=== PATIENT | female | born 1935 | race Caucasian/White ===

== ENCOUNTER 2018-10-13 14:14 | Emergency (ER) | payer MEDICARE ==
[~2018-10-13 14:14] MED LIST: Iopamidol 370 76% 100 ML VIAL ONE
[2018-10-13 15:02] LABS: #Basophils 0.2 thou/uL (0.0-0.2); #Eosinphils 0.1 thou/uL (0.0-0.7); #Lymphocytes 2.4 thou/uL (1.20-3.40); #Monocytes 1.2 thou/uL (0.11-0.59); #Neutrophils 12.4 thou/uL (1.40-6.50); %Basophils 1.4 % (0.0-1.0); %Eosinophils 0.6 % (0.0-10.0); %Lymphocytes 14.7 % (21.0-51.0); %Monocytes 7.4 % (0.0-10.0); %Neutrophils 75.9 % (42.0-75.0); Hemoglobin 14.1 g/dL (12.0-16.0); Mean Corpuscular HGB CONC 33.1 g/dL (32.0-36.0); Mean Corpuscular Hemoglobin 28.7 pg (27.0-31.0); Mean Corpuscular Volume 86.7 fL (78.0-98.0); Mean Platelet Volume 9.5 fL (7.4-10.4); Platelet Count 191 thou/uL (130-400); Red Blood Cell (RBC) Count 4.91 mill/uL (4.20-5.40); White Blood Cell (WBC) Count 16.3 thou/uL (4.8-10.8)
[2018-10-13 15:06] LABS: ALT (SGPT) 7 U/L (8-55); AST (SGOT) 12 U/L (5-34); Albumin 3.8 g/dL (3.4-4.8); Alkaline Phosphatase 61 U/L (40-150); Anion Gap 17 mmol/L (10-20); BUN (Urea Nitrogen) 13 mg/dL (9.8-20.1); Bilirubin, Total 0.8 mg/dL (0.2-1.2); Calc. Creatinine Clearance 0 mL/min (70-130); Calcium 9.2 mg/dL (7.8-10.44); Carbon Dioxide 23 mmol/L (23-31); Chloride 103 mmol/L (98-107); Estimated GFR-MDRD 81; Globulin 2.9 g/dL (2.4-3.5); Glucose 90 mg/dL (83-110); Potassium 4.1 mmol/L (3.5-5.1); Protein, Total 6.7 g/dL (6.0-8.3); Sodium 139 mmol/L (136-145)
--- NOTE | 2018-10-13 15:33 | RAD ---
FRONTAL AND LATERAL IMAGING OF THE CHEST 10/13/18 COMPARISON: 06/24/10 HISTORY: Cough and tachycardia. FINDINGS: There is coarse increased linear interstitial density noted within both lungs with an upper lobe pred ominance. There is increased linear density in the medial right upper lobe and there are postoperativ e clips in the right paratracheal region. There is tethering of the right hemidiaphragm, evidence of volume loss as well. There is no pneumothorax or pleural fluid and no focal consolidation or alveolar edema is present. Age indeterminate anterior wedge compression fractures are noted at T7. IMPRESSION: Postoperative changes involving the right hemithorax. Interstitial prominence and pulmonary hyperinfl ation suggesting underlying COPD. POS: [facility]
[2018-10-13] MEDS ORDERED: Levofloxacin 500 mg/D5W 100 ml Premix Bag ONE (15:49)
--- NOTE | 2018-10-13 17:28 | CT ---
CT ARTERIOGRAM CHEST WITH IV CONTRAST AND 3D MIP IMAGIN10/13/18 HISTORY: Dyspnea, tachycardia. FINDINGS: There is good contrast opacification of the pulmonary arteries and thoracic aorta with normal branchi ng of the great vessels. Calcification in the arterial structures. Extensive parenchymal scarring rig ht upper lobe. Pulmonary hyperinflation with mild bibasilar scarring. No bulky mediastinal adenopathy . Gallbladder is surgically absent. IMPRESSION: 1. No CT evidence of pulmonary embolus. 2. Atherosclerosis. POS: [facility]
== END 2018-10-13 17:08 | disposition home or self-care (01) ==
LOC: SCSER 14:14
DX: J06.9 Acute upper respiratory infection, unspecified (principal); M48.54XA Collapsed vertebra, not elsewhere classified, thoracic region, initial encounter for fracture; E78.5 Hyperlipidemia, unspecified; J44.9 Chronic obstructive pulmonary disease, unspecified; K21.9 Gastro-esophageal reflux disease without esophagitis; Z79.899 Other long term (current) drug therapy
CPT/HCPCS: 71046; 71275; 80053; 83605; 85025; 87040; 93005; 96365; J1956

== ENCOUNTER 2018-12-28 10:30 | Emergency (ER) | payer MEDICARE ==
[2018-12-28] MEDS ORDERED: Loperamide HCl 2 MG CAP ONE (11:09)
[2018-12-28] MEDS ORDERED: Ondansetron PF 4 MG/2 ML Vial ONE (11:09)
[2018-12-28 11:28] LABS: #Basophils 0.1 thou/uL (0.0-0.2); #Lymphocytes 1.5 thou/uL (1.20-3.40); #Monocytes 0.6 thou/uL (0.11-0.59); #Neutrophils 7.1 thou/uL (1.40-6.50); %Basophils 0.6 % (0.0-1.0); %Eosinophils 0.5 % (0.0-10.0); %Lymphocytes 15.8 % (21.0-51.0); %Monocytes 6.8 % (0.0-10.0); %Neutrophils 76.3 % (42.0-75.0); Hemoglobin 13.4 g/dL (12.0-16.0); Mean Corpuscular HGB CONC 31.9 g/dL (32.0-36.0); Mean Corpuscular Hemoglobin 29.3 pg (27.0-31.0); Mean Platelet Volume 11.7 fL (7.4-10.4); Platelet Count 215 thou/uL (130-400); RBC Distribution Width 12.2 % (11.5-14.5); Red Blood Cell (RBC) Count 4.57 mill/uL (4.20-5.40); White Blood Cell (WBC) Count 9.3 thou/uL (4.8-10.8)
[2018-12-28 11:46] LABS: ALT (SGPT) 7 U/L (8-55); AST (SGOT) 11 U/L (5-34); Albumin 3.8 g/dL (3.4-4.8); Alkaline Phosphatase 58 U/L (40-150); Anion Gap 16 mmol/L (10-20); BUN (Urea Nitrogen) 9 mg/dL (9.8-20.1); Bilirubin, Total 0.4 mg/dL (0.2-1.2); Calc. Creatinine Clearance 0 mL/min (70-130); Calcium 9.3 mg/dL (7.8-10.44); Carbon Dioxide 23 mmol/L (23-31); Chloride 106 mmol/L (98-107); Estimated GFR-MDRD Greater than 90; Globulin 2.9 g/dL (2.4-3.5); Glucose 93 mg/dL (83-110); Potassium 3.6 mmol/L (3.5-5.1); Protein, Total 6.7 g/dL (6.0-8.3); Sodium 141 mmol/L (136-145)
== END 2018-12-28 12:07 | disposition home or self-care (01) ==
LOC: SCSER 10:30
DX: R11.2 Nausea with vomiting, unspecified (principal); R19.7 Diarrhea, unspecified; J44.9 Chronic obstructive pulmonary disease, unspecified; K21.9 Gastro-esophageal reflux disease without esophagitis
CPT/HCPCS: 80053; 85025; 96361; 96374; J2405

== ENCOUNTER 2019-05-02 12:43 | Outpatient (CLI) | payer MEDICARE ==
--- NOTE | 2019-05-02 13:10 | RAD ---
Exam: Chest 2 views: HISTORY: Dyspnea COMPARISON: 10/13/2018 FINDINGS: Marked hyperinflation and chronic lung changes with biapical pleural thickening worse on the right si de and some associated right-sided volume loss with some vertical parenchymal change in the right base. Minimal increased markings in the left costophrenic angle region minimally more prominent than on prior study raising concern for mild acute process compressed thoracic vertebral bodies, these show more marked vertical height loss than when compared to the prior study. Prominent atherosclerosi s of the aorta with ectasia. IMPRESSION: Extensive chronic changes with hyperinflation with minimally more prominent increased markings in the left costophrenic angle than on the prior study. Bony demineralization with slightly worse thoracic spine compressions from prior study.
== END 2019-05-02 12:44 | disposition home or self-care (01) ==
LOC: RAD 12:43
PROVIDERS: ATTEND Internal Medicine
DX: R06.00 Dyspnea, unspecified (principal); M81.0 Age-related osteoporosis without current pathological fracture; G95.20 Unspecified cord compression; R91.8 Other nonspecific abnormal finding of lung field
CPT/HCPCS: 71046

== ENCOUNTER 2019-07-06 12:26 | Outpatient (CLI) | payer MEDICARE ==
[2019-07-06 13:00] LABS: Estimated GFR-MDRD - POC Greater than 90
--- NOTE | 2019-07-06 13:20 | CT ---
EXAM: CT of the chest with contrast HISTORY: Pulmonary nodule COMPARISON: 10/13/2018 TECHNIQUE: Multiple contiguous axial images were obtained in a CT the chest with contrast. Coronal re formats were performed. FINDINGS: HEART: Normal in size without focal cardiac abnormality MEDIASTINUM: No hilar or mediastinal lymphadenopathy. LUNGS: Scarring is seen in the right upper lobe, right lower lobe, and lingula. Atelectasis is seen i n both lung bases. No suspicious infiltrates, nodules, or masses. PLEURAL SPACE: No pneumothorax or pleural effusion. CHEST WALL SOFT TISSUES: Unremarkable OSSEOUS STRUCTURES: Degenerative changes in the spine. VISUALIZED SUBDIAPHRAGMATIC STRUCTURES: Bilateral renal cysts. Status post cholecystectomy. IMPRESSION: Stable scarring throughout the lungs without suspicious pulmonary nodule identified.
[2019-07-06] MEDS ORDERED: ISOVUE-370 76%-LOCM 1 ML ONE (16:40)
== END 2019-07-06 12:27 | disposition home or self-care (01) ==
LOC: BICCT 12:26
PROVIDERS: ATTEND Internal Medicine
DX: R91.8 Other nonspecific abnormal finding of lung field (principal)
CPT/HCPCS: 71260; 82565; Q9966